=== PATIENT | female | born 1990 | race Caucasian/White ===

== ENCOUNTER 2022-04-18 09:35 | Inpatient (IN) | payer BC ==
[2022-04-17 08:59] LABS: #Eosinphils 0.1 10x3/uL (0.0-0.5); #Monocytes 0.6 10x3/uL (0.0-1.1); %Basophils 0.3 % (0.0-2.0); %Eosinophils 1.9 % (0.0-6.0); %Lymphocytes 20.6 % (18.0-47.0); %Monocytes 7.6 % (0.0-10.0); %Neutrophils 68.6 % (40.0-75.0); Hemoglobin 12.4 g/dL (12.0-15.5); Mean Corpuscular HGB CONC 36.2 g/dL (32.0-36.0); Mean Corpuscular Hemoglobin 32.9 pg (27.0-33.0); Mean Platelet Volume 10.2 fl (7.4-10.4); Platelet Count 195 10x3/uL (150-450); RBC Distribution Width 13.9 % (11.5-14.5); Red Blood Cell (RBC) Count 3.77 10x6/uL (3.90-5.03); White Blood Cell (WBC) Count 7.3 10x3/uL (3.5-10.5)
[2022-04-17 09:20] LABS: HBSAg Index 0.17 S/CO (0-0.99); Hep B Surf Ag Non-Reactive S/CO (NonReactive)
[2022-04-17 09:22] LABS: Syphilis Antibody Nonreactive (Nonreactive); Syphilis Antibody Index 0.02 S/CO (<1.00 Non-Reactive)
[2022-04-17 09:33] LABS: SARS-CoV-2 NAA Rapid Test Not Detected (NotDetected)
[2022-04-18] MEDS ORDERED: Famotidine/PF 20 mg/2ml Vial SLOW IVP PRN (09:38)
[2022-04-18] MEDS ORDERED: Ondansetron PF 4 MG/2 ML Vial IVP PRN ×3 (09:38→15:31)
[2022-04-18] MEDS ORDERED: Bicitra 30 ML UDCUP PO PRN (09:38)
[2022-04-18] MEDS ORDERED: Butorphanol Tartrate 1 MG/ML VIAL SLOW IVP PRN (09:38)
[2022-04-18] MEDS ORDERED: Acetaminophen 500 MG TAB PO PRN (09:38)
[2022-04-18] MEDS ORDERED: Promethazine HCl 25 MG/ML VIAL IM PRN ×2 (09:38→11:21)
[2022-04-18] MEDS ORDERED: hydrALAZINE 20 MG/ML VIAL SLOW IVP PRN ×2 (09:38→15:31)
[2022-04-18] MEDS ORDERED: Lactated Ringer's 1,000 ML IV SCH (09:45)
[2022-04-18] MEDS ORDERED: CEFAZOLIN 2 GM in Sodium Chloride 0.9% 100 ML IVPB SCH (09:45)
[2022-04-18 09:58] VITALS: BMI 33.9
[2022-04-18] MEDS ORDERED: Fentanyl 100 MCG/2 ML VIAL SLOW IVP PRN (11:21)
[2022-04-18] MEDS ORDERED: Meperidine HCl/PF 25 MG/ML VIAL SLOW IVP PRN (11:21)
[2022-04-18] MEDS ORDERED: Naloxone HCl 0.4 mg/ml Vial IV PRN (11:21)
[2022-04-18] MEDS ORDERED: Moisturizing Cream (Eucerin) 113 GM JAR TOP PRN (11:21)
[2022-04-18] MEDS ORDERED: diphenhydrAMINE 50 MG/ML VIAL IVP PRN (11:21)
[2022-04-18] MEDS ORDERED: Ketorolac Tromethamine 30 MG/ML VIAL IVP PRN (11:21)
[2022-04-18] MEDS ORDERED: Promethazine HCl 25 MG SUPP PR PRN (11:21)
[2022-04-18] MEDS ORDERED: Naloxone HCl 0.4 mg/ml Vial IVP PRN ×2 (11:21)
[2022-04-18] MEDS ORDERED: Ondansetron HCl/PF 4 MG/2 ML Vial IVP PRN (11:21)
[2022-04-18] MEDS ORDERED: Ketorolac Tromethamine 30 MG/ML VIAL IVP SCH (11:30)
[2022-04-18] MEDS ORDERED: Communication Order-Pharmacy FS SCH (11:30)
[2022-04-18] MEDS ORDERED: Morphine PF 10 MG/10 ML VIAL ONE (11:57)
[2022-04-18] MEDS ORDERED: Dexamethasone 4 mg/ml Vial ONE (11:57)
[2022-04-18] MEDS ORDERED: Oxytocin 10 UNITS/ML VIAL ONE (11:57)
[2022-04-18] MEDS ORDERED: Ondansetron PF 4 MG/2 ML Vial ONE (11:57)
[2022-04-18] MEDS ORDERED: Ketorolac Tromethamine 30 MG/ML VIAL ONE (11:58)
[2022-04-18] MEDS ORDERED: Phenylephrine 40 MG/NS 250 ML 250 ML ONE (11:58)
[2022-04-18] MEDS ORDERED: Bisacodyl 10 MG SUPP PR PRN (15:31)
[2022-04-18] MEDS ORDERED: Simethicone Chewable 80 MG TAB PO PRN (15:31)
[2022-04-18] MEDS ORDERED: Acetaminophen 325 MG TAB PO PRN (15:31)
[2022-04-18] MEDS ORDERED: Lanolin Ointment 7 GM TUBE TOP PRN (15:31)
[2022-04-18] MEDS ORDERED: diphenhydrAMINE 25 MG CAP PO PRN (15:31)
[2022-04-18] MEDS: Ferrous Sulfate 325 MG TAB PO SCH (21:48)
[2022-04-18] MEDS: Docusate 100 MG CAP PO SCH (21:48)
[2022-04-18] MEDS ORDERED: HYDROcodone/Acetaminophen 5/325 mg Tablet PO PRN (23:30)
[2022-04-19 04:14] LABS: Hemoglobin 10.3 g/dL (12.0-15.5); Mean Corpuscular Hemoglobin 31.7 pg (27.0-33.0); Mean Corpuscular Volume 90.5 fl (81.6-98.3); Mean Platelet Volume 10.5 fl (7.4-10.4); Platelet Count 183 10x3/uL (150-450); RBC Distribution Width 13.8 % (11.5-14.5); Red Blood Cell (RBC) Count 3.25 10x6/uL (3.90-5.03); White Blood Cell (WBC) Count 12.1 10x3/uL (3.5-10.5)
[2022-04-19] MEDS: Ferrous Sulfate 325 MG TAB PO SCH ×2 (07:06→21:22)
[2022-04-19] MEDS: Docusate 100 MG CAP PO SCH ×2 (08:23→21:22)
[2022-04-19] MEDS: HYDROcodone/Acetaminophen 5/325 mg Tablet PO PRN ×3 (08:23→13:48)
[2022-04-19] MEDS: Ibuprofen 800 MG TAB PO SCH ×2 (13:47→21:22)
[2022-04-19 23:08] VITALS: TEMP 97.7
[2022-04-20] MEDS: Ibuprofen 800 MG TAB PO SCH (05:03)
[2022-04-20] MEDS: Ferrous Sulfate 325 MG TAB PO SCH (07:30)
[2022-04-20 07:48] VITALS: BP 115/62
[2022-04-20] MEDS: HYDROcodone/Acetaminophen 5/325 mg Tablet PO PRN (08:25)
[2022-04-20] MEDS: Docusate 100 MG CAP PO SCH (08:25)
[2022-04-21] MEDS ORDERED: Boostrix 0.5 ML (Tdap) VIAL (>/=7 yrs of age) IM ONE (15:31)
== END 2022-04-20 10:30 | disposition home or self-care (01) | DRG 787 ==
LOC: CSHLD 09:35 → CSHPP 15:34
PROVIDERS: ADMIT Student in an Organized Health Care Education/Training Program; ATTEND Student in an Organized Health Care Education/Training Program
PROC: 10D00Z1 Extraction of Products of Conception, Low, Open Approach (ICD-10-PCS; principal; 2022-04-18)
DX: O34.211 Maternal care for low transverse scar from previous cesarean delivery (principal); R71.0 Precipitous drop in hematocrit; Z20.822 Contact with and (suspected) exposure to COVID-19; Z3A.39 39 weeks gestation of pregnancy; Z37.0 Single live birth; O99.824 Streptococcus B carrier state complicating childbirth; O99.893 Other specified diseases and conditions complicating puerperium
CPT/HCPCS: 36415; 51702; 85025; 85027; 86780; 86850; 86900; 86901; 87340; J1100; J1885; J2274; J2405; J2590; S0028; U0002